=== PATIENT | male | born 1970 | race Caucasian/White ===

== ENCOUNTER 2018-08-11 11:56 | Inpatient (IN) ==
--- NOTE | 2018-08-11 09:42 | Discharge Summary ---
<Abhishek eHrnandez - Last Filed: 08/12/18 06:30> Orders not resulted at time of discharge: Pending orders 08/11/18 12:38 US anesthesia pain block [US] Stat 08/11/18 14:30 Culture,Anaerobic [RM] Routine Culture,Wound [RM] Routine Gram Stain [RM] Routine Date of Encounter: 08/12/18 Time of Encounter: 06:30 - Hospital Course Hospital course: Mr. Aguillon is a 47 year old male Patient discharged status post revision total shoulder replacement same day. - Time Spent with Patient Total time spent providing and/or coordinating discharge services: - Discharge Medications Home Medications: RX: Docusate Sodium [Colace] 100 mg PO BID 5 Days #10 capsule 08/11/18 [Rx] RX: OxyCODONE Immed Rel [Roxicodone 5 MG] 5 mg PO Q6HR PRN 7 Days #28 tablet 08/11/18 [Rx] Allergies/Adverse Reactions: Allergy/AdvReac Type Severity Reaction Status Date / Time ketorolac [From Toradol] AdvReac Nausea Verified 08/11/18 12:38 meperidine [From Demerol] AdvReac Hallucinati Verified 08/11/18 12:38 ng nalbuphine [From Nubain] AdvReac Hallucinati Verified 08/11/18 12:38 ng tramadol AdvReac Nausea Verified 08/11/18 12:38 Date of admission: 08/11/18 15:54 Primary care physician: Abhishek Hernandez MD Consults: 08/11/18 16:14 Consult to Physical Therapy [CONS] Routine Comment: post shoulder surgery Reason for Consult: post shoulder surgery Does patient have active BEDREST order?: No Is patient medically & hemodynamically stable?: Yes RT Post Op Consult [CONS] Routine - Impressions ITS Impressions Shoulder X-Ray 08/11/18 00:00 IMPRESSION: Expected postsurgical appearance of the left shoulder, no evidence of complication. D/ / Drake Oscar MD / Drake Oscar MD Interpreting Provider: Drake Oscar MD - Patient Status Disposition: Home, Self-Care Condition: Good Functional capacity at discharge: independent ambulation Overall status at discharge: patient is progressing back to baseline - Discharge Instructions Follow Up With: Abhishek Hernandez MD [Primary Care Provider] - Additional Instructions: Discharge Instructions: Total Shoulder Please call [facility] ([phone]), your Primary Care Physician, or report to the Emergency Room if you have any of the following symptoms: Nausea, vomiting, fever greater that 101.5, swelling, chest pain, shortness of breath, increased pain/redness/drainage/odor for your incision site, numbness/tingling, or any other concerning symptoms. ACTIVITY: Always keep your arm in the sling. Do not raise your arm away from your body. Do not use your arm to help with getting in or out of bed. No weight bearing permitted. Only perform those exercises given to you by your therapist. Incentive Spirometer 10 times an hour. MEDICATIONS: Upon discharge resume your home medications. Take all the medications as prescribed. Take a stool softener if taking narcotic pain medications. Stool softeners are only effective if you drink enough fluids. Drink 6-8 glass of water or fluids a day, unless this is not allowed for another health problem. Despite using stool softeners, if you haven't had a bowel movement in 3 days, please switch to a gentle laxative. Gentle laxatives are sold over the counter. You should have a bowel movement within 24 hours, if not call the office. You will be discharged from the hospital with a prescription for pain medication. You are encouraged to decrease the use of narcotic pain medication as tolerated. Should you require a refill, please call the office. [facility] prescribes narcotic pain medication for only 4-6 weeks after surgery. If you require pain medication beyond this time period, you may be referred to your Primary Care Physician or to the Pain Clinic for further evaluation. Plan ahead for refills on pain medication as many narcotics either need to be picked up at the office or mailed. It is best to call 48-72 hours in advance of needing a prescription refill so you don't run out of medication. To help control the post-operative pain, you may take NSAIDs (Aleve,Advil, Motrin, Ibuprofen, Naprosyn) or Tylenol as prescribed on the bottle in addition to the pain medication. WOUND CARE: Leave the dressing on for 7-10 days. You may change the dressing if it becomes saturated greater than 50%. Do not get the dressing wet at anytime. Wash your hands with antibacterial soap, rinse and dry prior to any wound care. If you have aleksandra the visiting nurse or rehab facility can remove the stapes 10-14 days after surgery and place steri-strips across the wound. Leave the steri-strips in place until they fall off on their own. You may let water from the shower run on top of the steri-strips. If you do not have a visiting nurse or rehab facility, you will need to return to the office at 10-14 days for the aleksandra to be removed. If you have itching or redness around the dressing call the office. FOLLOW-UP: Please follow up with your surgeon in the orthopedic clinic, as scheduled <Zeinab Wilson E - Last Filed: 08/12/18 17:10> Orders not resulted at time of discharge: Pending orders 08/11/18 00:00 XR shoulder complete LT [XR] Routine 08/11/18 01:00 Hemoglobin and Hematocrit [HEME] Routine Date of Encounter: 08/12/18 - Discharge Diagnosis (1) Painful orthopaedic hardware Priority: Primary Status: Chronic (2) History of left shoulder replacement Priority: Primary Status: Chronic (3) Status post reverse total shoulder replacement Priority: Primary Status: Acute Qualifiers: Laterality: left Qualified Code(s): Z96.612 - Presence of left artificial shoulder joint (4) Left shoulder pain Priority: Primary Status: Chronic Qualifiers: Chronicity: unspecified Qualified Code(s): M25.512 - Pain in left shoulder (5) GERD (gastroesophageal reflux disease) Priority: Secondary Status: Chronic Qualifiers: Esophagitis presence: esophagitis presence not specified Qualified Code(s): K21.9 - Gastro-esophageal reflux disease without esophagitis - Hospital Course Hospital course: Mr. Aguillon is a 47 year old male - Time Spent with Patient Total time spent providing and/or coordinating discharge services:
--- NOTE | 2018-08-11 12:16 | Anesthesia Evaluation PreOp ---
Date of Encounter: 08/11/18 Time of Encounter: 12:37 - Past History Planned Operation: Left shoulder partial hemiarthroplasty, revision Cardiac History: Denies any Significant Hx Pulmonary History: Smoker (smokes THC; no nicotine) LEARNING AND DEVELOPMENT OFFICER History: Denies Any Significant HX Other Medical History: Renal (stones) Anesthesia History: Problems (nausea) Alcohol Use: none Drug use: marijuana Medications and Allergies Docusate Sodium [Colace] 100 mg PO BID 5 Days #10 capsule 08/11/18 [Rx] OxyCODONE Immed Rel [Roxicodone 5 MG] 5 mg PO Q6HR PRN 7 Days #28 tablet 08/11/18 [Rx] Allergy/AdvReac Type Severity Reaction Status Date / Time ketorolac [From Toradol] AdvReac Nausea Verified 08/11/18 12:38 meperidine [From Demerol] AdvReac Hallucinati Verified 08/11/18 12:38 ng nalbuphine [From Nubain] AdvReac Hallucinati Verified 08/11/18 12:38 ng tramadol AdvReac Nausea Verified 08/11/18 12:38 - Meds/Allergy Pre-op Review Medications Reviewed: Yes Allergies Reviewed: Yes Beta Blockers on Current Med List: No Anesthesia Results - Labs Laboratory Tests 08/08/18 08/08/18 08/08/18 10:42 10:42 10:42 WBC 7.8 Hgb 14.9 Hct 44.5 Plt Count 285 PT 11.3 INR 1.0 APTT 30.3 Sodium 135 L Potassium 4.6 Chloride 103 Carbon Dioxide 27 BUN 18 Creatinine 0.94 Est GFR ( Amer) > 60 Est GFR (Non-Af Amer) > 60 BUN/Creatinine Ratio 19 Anesthesia Exam Weight: 98 kg - HEENT Pupil (Motor): Pupils equal, EOMI Mallampati: III Teeth: Missing Oral Opening: Greater than 3 - LEARNING AND DEVELOPMENT OFFICER LOC: Oriented - Cardiac Rhythm: Regular Murmur: None - Pulmonary Breath Sounds: bilateral Clear Respiratory Effort: Symmetrical Anesthesia Assess/Plan ASA Score: 2 Level of consciousness: Cooperative Anesthetic Plan: General, Regional Nerve Block Monitoring Plan: Standard Monitors Recovery Plan: PACU
[2018-08-11] MEDS ORDERED: CeFAZolin Syr 2,000MG/20 ML 2,000 MG/20 ML SYRINGE IVPB ONE (12:20)
[2018-08-11] MEDS ORDERED: *HR* Propofol 200 MG/20 ML VIAL IVP ONE (12:21)
[2018-08-11] MEDS ORDERED: *HR* FentaNYL (PF) 100 MCG/2 ML VIAL ONE (12:21)
[2018-08-11] MEDS ORDERED: *HR* Midazolam HCl 2 MG/2 ML VIAL ONE (12:21)
[2018-08-11] MEDS ORDERED: Lidocaine -MPF 2% 2 ML VIAL ONE (12:21)
[2018-08-11] MEDS ORDERED: Ondansetron 4 MG/2 ML VIAL ONE (12:28)
[2018-08-11] MEDS ORDERED: Lidocaine -MPF 4% 5 ML AMPUL ONE (12:28)
[2018-08-11] MEDS ORDERED: Dexamethasone 4 MG/ML VIAL ONE ×2 (12:28→14:10)
[2018-08-11] MEDS ORDERED: *HR* OxyCODONE Immed Rel 5 MG TABLET PO PRN ×2 (12:29→16:14)
[2018-08-11] MEDS ORDERED: *HR* Promethazine 25 MG/ML VIAL IVP PRN (12:29)
[2018-08-11] MEDS ORDERED: *HR* HYDROmorphone (PF) 1 MG/ML SYRINGE IVP PRN (12:29)
[2018-08-11] MEDS ORDERED: Ringers Solution, Lactated 1,000 ML IVC SCH ×2 (12:30→16:14)
[2018-08-11] MEDS ORDERED: Scopolamine Patch 1.5 MG PATCH.TD72 TD ONE (12:38)
--- NOTE | 2018-08-11 12:54 | History & Physical Report ---
Date of Encounter: 08/11/18 Time of Encounter: 12:54 24 Hour HP Update - Instructions Instructions: If the History and Physical is less than 30 days old and was completed prior to A.M. admission and or procedure and has NOT been updated on calendar day of procedure please complete this update prior to performing procedure. - Update Patient reports changes in Medical Condition: No Changes in examination, assessment, or condition: No Changes in Medication: No Preop tests/diagnostics Reviewed: Yes Surgery Remains Indicated: Yes Consent for Planned Operative Procedure(s) Verified: Yes - Pre-Operative Checklist Preoperative Checklist Indicated: No Prophylactic Antibiotic Ordered: Yes Is VTE Prophylaxis Indicated?: Yes
[2018-08-11] MEDS ORDERED: ROPIVACAINE HCL/PF 0.5% 30 ML VIAL ONE (12:56)
[2018-08-11] MEDS ORDERED: Bupivacaine/Clonidine Syringe 1 EACH SYRINGE ONE (12:56)
[2018-08-11] MEDS ORDERED: *HR* Midazolam HCl 5 MG/5 ML VIAL IVP ONE (13:13)
[2018-08-11] MEDS ORDERED: Propofol 500 MG/50 ML INFUS..BTL ONE (13:16)
[2018-08-11] MEDS ORDERED: Ethanol\\Acetic Acid\\Na Ace\\Ben 1,000 ML IRRIG.SOLN IR ONE (13:46)
--- NOTE | 2018-08-11 13:47 | Anesthesia Procedures ---
Date of Encounter: 08/11/18 Time of Encounter: 13:45 Procedures: Anesthesia - Nerve Block Procedure Date: 08/11/18 Time: 13:45 Allergies/Adv Reactions: ketorolac, meperidine, nalbuphine, tramado Pre-op Diagnosis: left rotator cuff arthropathy Surgical Procedure: left total shoulder reverse Checklist: Correct Patient Identifier, Correct procedure, History checked Correct side: Left Blood Thinner: No Monitor Applied: BP, Pulse Oximetry Supplemental Oxygen via Nasal Cannula (L/min): 2 Sedation: Versed (mg): 2 Sedation: Fentanyl (mcg): 100 Indication: Post Op Analgesia Pre-op Neuro Deficits: No Block Type: Interscalene, Other (scb, icb) Catheter placed: No Sterile Technique: Yes Ultrasound used: Yes Anatomy identified: Yes Visual spread of Local: Yes Neuro Stimulation: No Blood on Needle Aspiration: No Smooth Injection of Local: Yes Pain with Injection of Local: Yes Prep: Chlorhexadine Needle: 22 x 50 mm Stimuplex Local: 0.25% Bupivicaine w/Clonidine 20 mcg/cc (10ml SCB, 10ml ICB), Ropivacaine (30ml interscalene) Volume (cc): 50 Number of Attempts: 1 Complications: None/effective block
[2018-08-11] MEDS ORDERED: *HR* Phenylephrine 10 MG/ML VIAL ONE (14:39)
--- NOTE | 2018-08-11 14:56 | Orthopedic Operative Note ---
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 Patient with pain and instability. Operative procedure: The patient was brought to the operating room and placed on the operating room table. The patient was placed in the modified beachchair position. All pressure points were padded appropriately. And the head was stabilized in the neutral position. The operative extremity was prepped and draped in the sterile surgical fashion. The patient received IV antibiotics prior to skin incision. A standard deltopectoral approach was made to the operative shoulder. Incision was made through the old incision, through the skin and subcutaneous tissue,hemo stasis was obtained with Bovie cautery. Using careful blunt dissection the cephalic vein was identified and mobilized medially. The deltopectoral interval was developed and the clavipectoral fascia was incised. The patient subscap was not intact. An extensive debridement was performed, and the shoulder was dislocated. Using an osteotome to clear out the soft tissue, the humeral component was gently removed without any bone loss. Anterior and posterior Bankart retractors were used to expose the glenoid. The glenoid guide was seated the centering hole was made the glenoid was reamed with the appropriate reamer. The glenoid 28, +4, 35 mm screw, baseplate was seated and secured with 4, 5.5 locking screws. The baseplate was irrigated and dried 42+4 glenosphere was seated and secured with the Kinney taper and central screw-in. Attention was then turned to the humeral side. The humerus was reamed and broached up to its appropriate size 12 in 20 degrees of retroversion. Trial reduction found the shoulder to be relocatable. Trial components were removed, real 12 apex implant was seated. Trial reduction found the shoulder to be stable with the appropriate 3 Janice. The trial implants were removed the real implants were seated and secured in the shoulder was reduced. The patient had excellent motion and excellent stability no shuck. The deep tissue was irrigated with pulse irrigation the PA close the shoulder, deltopectoral interval was closed with #2 PDS suture. Superficially the subcutaneous tissue was closed with 0 PDS suture, the skin was closed with Dermabond. The patient placed sterile dressing, postoperative brace extubated and transferred to the recovery room in stable condition. Anesthesia: GETA Surgeon: Abhishek Hernandez Was there an painter assistant present: Yes Wafer Batter Mixer: Zeinab Wilson Estimated blood loss (cc): 100 Condition: stable Disposition: PACU
--- NOTE | 2018-08-11 16:01 | Anesthesia Evaluation Post Op ---
Date of Encounter: 08/11/18 Time of Encounter: 16:00 - Vital Signs Vital Signs: Vital Signs/O2 Sat/Glucose, Most Current Temp Pulse Resp BP Pulse Ox 08/11/18 15:42 98.0 F 64 15 106/75 96 08/11/18 15:32 62 13 107/96 95 08/11/18 15:22 72 18 102/62 95 08/11/18 15:12 98.1 F 65 12 101/53 98 08/11/18 13:46 64 99/67 98 08/11/18 13:30 64 110/64 99 08/11/18 12:24 97.9 F 76 18 103/68 96 - Lungs Lungs: Clear Ascult./Percussion - Airway Airway: Non-obstructed - Cardiovascular Regular Rate - Mental Status Mental Status: Alert & Oriented, Answers Appropriately - Pain Pain Scale: 0 - Nausea Vomiting Nausea Vomiting: Not Present - Hydration Hydration: Ice chips - Discharge PostOp Status: Transfer Patient to floor
[2018-08-11] MEDS ORDERED: Naloxone 0.4 MG/ML INJ IVP PRN (16:14)
[2018-08-11] MEDS ORDERED: Ondansetron 4 MG/2 ML VIAL IVP PRN (16:14)
[2018-08-11] MEDS ORDERED: traMADol 50 MG TABLET PO PRN (16:14)
[2018-08-11] MEDS ORDERED: *HR* OxyCODONE/APAP 5/325 TABLET PO PRN (16:14)
[2018-08-11] MEDS ORDERED: Temazepam 15 MG CAPSULE PO PRN (16:14)
[2018-08-11] MEDS ORDERED: MOM Conc 10 ML UD.LIQ PO PRN (16:14)
[2018-08-11] MEDS ORDERED: Sennosides 8.6 MG TABLET PO PRN (16:14)
[2018-08-11 17:52] VITALS: BP 106/65
[2018-08-11] MEDS ORDERED: *HR* Enoxaparin 30 MG/0.3 ML SYRINGE SQ SCH ×2 (18:00)
== END 2018-08-11 18:04 | disposition home or self-care (01) | DRG 322 ==
LOC: SAMDAY 11:56 → 3NENU 15:54
PROVIDERS: ADMIT Orthopaedic Surgery; ATTEND Orthopaedic Surgery